=== PATIENT | female | born 1970 | race Caucasian/White ===

== ENCOUNTER 2016-02-28 14:06 | Outpatient (CLI) | payer BC ==
--- NOTE | 2016-02-28 17:46 | DIAGNOSTIC IMAGING REPORT ---
PROCEDURE: MR LOWER EXT JOINT WO CONT-LT INDICATION: RECURRENT LT KNEE INSTABILITY TECHNIQUE: PD and FAT-SAT PD sagittal and coronal images. FAT-SAT PD axial images. High-resolution T2 sagittal images of the cruciate ligaments. (Total of 6 sequences). COMPARISON: The left knee x-ray 02/11/2016 FINDINGS: Large spurs of all three joint compartments. Prior ACL repair with complete tear of the graft. Collateral and posterior cruciate ligaments are intact. Complex tear of the medial meniscus posterior horn. Normal lateral meniscus. Mild chondromalacia of the medial and lateral compartments. Normal quadriceps and patellar tendons. Multiple loose bodies, largest 1.7 cm. Moderate chondromalacia. Mild joint effusion. IMPRESSION: 1. Severe tricompartment degenerative changes 2. ACL repair with complete tear of the graft 3. Medial meniscus posterior horn tear 4. Chondromalacia of all three joint compartments 5. Multiple loose bodies 6. Mild suprapatellar effusion
== END 2016-02-28 23:00 ==
LOC: XR SRH 14:06
DX: M23.52 Chronic instability of knee, left knee (principal); M23.42 Loose body in knee, left knee; M94.262 Chondromalacia, left knee; M25.462 Effusion, left knee; M23.222 Derangement of posterior horn of medial meniscus due to old tear or injury, left knee